=== PATIENT | female | born 1935 | race Caucasian/White ===

== ENCOUNTER 2020-08-17 15:43 | Inpatient (IN) | payer MEDICARE, BC ==
[~2020-08-17] VITALS: Ht 152.4 cm; Wt 46.3 kg
[2020-08-18] MEDS ORDERED: ACET-2154 PO (17:23)
[2020-08-18] MEDS ORDERED: ENOX40DI SQ (17:28)
[2020-08-18] MEDS ORDERED: LEVO100T PO (17:28)
[2020-08-18] MEDS ORDERED: DONE10TA11 PO (17:28)
[2020-08-18] MEDS ORDERED: MAG30ORA PO (17:28)
[2020-08-18] MEDS ORDERED: LISI2.5T2 PO (17:28)
[2020-08-18] MEDS ORDERED: MAGN400O6 PO (17:28)
[2020-08-18] MEDS ORDERED: HYDR-4384 PO (17:28)
[2020-08-18] MEDS ORDERED: MEMA10TA PO (17:29)
--- NOTE | 2020-08-18 18:09 | NUR ---
patient admitted from [facility] status post left hip hemiarthroplasty, patient is alert, awake, no sob,resp even nonlabord, skin warm and dry to touch, incision site is clean and dry, no active bleeding noted, patient is comfortable in bed, hip precautions are in place, [employer] APPRENTICE Yousuf is aware about admission and recon meds.
[2020-08-18 18:53] VITALS: BP 130/70
[2020-08-18] MEDS ORDERED: MAGNESIUM HYDROXIDE 30 ML LIQUID UDC PO PRN (20:00)
[2020-08-18] MEDS: MEMANTINE HCL 10 MG TABLET PO SCH (20:52)
[2020-08-18] MEDS: HYDROCODONE/APAP 5-325MG TABLET PO PRN (20:53)
[2020-08-18 21:00] VITALS: BP 108/50
--- NOTE | 2020-08-18 21:30 | NUR ---
Received pt resting in bed. AAO x1-2. No acute distress noted. Complain of 8/10 pain on left hip, PRN pain med and other due med given as ordered. Turned and repositioned. Both heels offloaded. Safety measures maintained. Bed alarm on. Call light and personal items within reach. Will continue to monitor.
[2020-08-19 04:00] VITALS: BP 126/70
[2020-08-19 07:06] LABS: BASOPHILS # (AUTO) 0.1 K/uL (0.0-8.0); BASOPHILS % (AUTO) 0.8 % (0.0-2.0); EOSINOPHILS # (AUTO) 0.3 K/uL (0.0-0.7); HEMATOCRIT 27.9 % (31.2-41.9); HEMOGLOBIN 9.4 g/dL (10.9-14.3); LYMPHOCYTES # (AUTO) 1.2 K/uL (20.0-40.0); MEAN CORPUSCULAR HEMOGLOBIN 30.6 uug (24.7-32.8); MEAN CORPUSCULAR HGB CONC 34 g/dL (32.3-35.6); MEAN CORPUSCULAR VOLUME 90.3 fL (75.5-95.3); MONOCYTES % (AUTO) 10.1 % (0.0-11.0); NEUTROPHILS # (AUTO) 7.4 K/uL (1.8-8.9); NEUTROPHILS % (AUTO) 74.1 % (38.5-71.5); PLATELET COUNT (AUTO) 403 K/uL (179-408); RED BLOOD CELL COUNT(AUTO) 3.09 MIL/uL (3.63-4.92)
[2020-08-19 07:30] LABS: BILIRUBIN,DIRECT 0.1 mg/dL (0.0-0.2); BILIRUBIN,TOTAL 0.5 mg/dL (0.2-1.0); CREATININE 0.6 mg/dL (0.6-1.3); PHOSPHOROUS 2.7 mg/dL (2.5-4.9); POTASSIUM 3.4 mmol/L (3.5-5.1); TOTAL PROTEIN, SERUM 5.8 g/dL (6.4-8.2)
[2020-08-19 07:41] LABS: *BILIRUBIN,URIN NEGATIVE (NEGATIVE); *CLARITY,URINE SLIGHTLY CLOUDY (CLEAR); *COLOR,URINE YELLOW (YELLOW); *KETONES,URINE NEGATIVE (NEGATIVE); *UROBILINOGEN,URINE 0.2 E.U./dl (NORMAL); LEUKOCYTE ESTERASE ,URINE NEGATIVE (NEGATIVE); NITRITE, URINE NEGATIVE (NEGATIVE); UGLUCOSE NEGATIVE (NEGATIVE)
[2020-08-19 07:47] LABS: *BLOOD, URINE TRACE (NEGATIVE)
[2020-08-19] MEDS ORDERED: LEVOTHYROXINE SODIUM 100 MCG TABLET PO SCH (09:00)
[2020-08-19] MEDS: LISINOPRIL 5 MG TABLET PO SCH (09:00)
[2020-08-19] MEDS: LEVOTHYROXINE SODIUM 100 MCG TABLET PO SCH (09:01)
[2020-08-19] MEDS: MEMANTINE HCL 10 MG TABLET PO SCH ×2 (09:01→21:24)
[2020-08-19] MEDS: DONEPEZIL 10 MG TABLET PO SCH (09:01)
[2020-08-19] MEDS: ENOXAPARIN SODIUM 40 MG/0.4 ML DISP.SYRIN SQ SCH (09:10)
[2020-08-19] MEDS ORDERED: POTASSIUM CHLORIDE 20 MEQ TAB.PRT.SR PO ONE (10:00)
[2020-08-19 12:34] LABS: BACTERIA,URINE FEW /HPF (NONE SEEN); RBC,URINE 0-3 /HPF (0-3); SQUAMOUS EPITHELIAL CELL,UR FEW /HPF (NONE SEEN); WBC,URINE NONE SEEN /HPF (0-3)
[2020-08-19] MEDS: ACETAMINOPHEN 325 MG TABLET PO PRN (17:09)
--- NOTE | 2020-08-19 17:47 | NUR ---
Pt received, assessed, no acute distress, and denies pain. Pt cooperative with routine medications and taking Tylenol PRN for headache and slight back ache. Pt compliant with therapies as offered. Pt is pleasantly confused AAOx1-2 and believes she is in her assisted living facility. Pt denies being wet at times, when in actuality she is. Pt repositioned, all comfort and safety measures implemented. Personal items and call light placed within reach. 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
[2020-08-19 20:30] VITALS: BP 111/55
[2020-08-19] MEDS: ATORVASTATIN 20 MG TABLET PO SCH (21:24)
--- NOTE | 2020-08-19 21:29 | NUR ---
medications due given . ambulated to the bathroom with assist and walker and assisted back to bed tolerated well.fixed in bed and made comfortable,with call light within reach
--- NOTE | 2020-08-20 02:45 | NUR ---
awake,bedpan senrved and voided freely,cleaned and kept dry thereafter
--- NOTE | 2020-08-20 04:02 | NUR ---
ambulated to the bathroom with assistance and walker.
[2020-08-20 04:36] VITALS: BP 125/63
[2020-08-20] MEDS: LEVOTHYROXINE SODIUM 100 MCG TABLET PO SCH (06:29)
[2020-08-20] MEDS ORDERED: LEVOTHYROXINE SODIUM 100 MCG TABLET PO SCH (07:00)
[2020-08-20 08:00] VITALS: BP 128/67
[2020-08-20] MEDS: MEMANTINE HCL 10 MG TABLET PO SCH ×2 (08:50→20:34)
[2020-08-20] MEDS: LISINOPRIL 5 MG TABLET PO SCH (08:50)
[2020-08-20] MEDS: DONEPEZIL 10 MG TABLET PO SCH (08:50)
[2020-08-20] MEDS: ENOXAPARIN SODIUM 40 MG/0.4 ML DISP.SYRIN SQ SCH (08:51)
--- NOTE | 2020-08-20 15:33 | NUR ---
INTERDISCIPLINARY TEAM CONFERENCE
[2020-08-20 16:08] VITALS: BP 114/48
--- NOTE | 2020-08-20 17:11 | NUR ---
Pt. tolerated therapy well. no c/o of pain/discomfort prior and post therapy. Pt AOX2 noted. confuse and forgetful. Incontinent to urine and bladder. Continue lovenox for DVT PPX. no signs of bleeding noted. Pt wound dressing change. will continue monitor
[2020-08-20 20:00] VITALS: BP 119/66
[2020-08-20] MEDS: ATORVASTATIN 20 MG TABLET PO SCH (20:34)
[2020-08-21 04:00] VITALS: BP 119/53
--- NOTE | 2020-08-21 04:29 | NUR ---
Awake alert and oriented x2-3 with periods of confusion @ times. VSS. Needs attended. Kept comfortable. Admitted for a left hip hemiarthroplasty. Left hip dressing clean, with andrew intact. Incontinent of bowel and bladder. Kept clean and dry. No BM noted this shift. Will monitor patient. No acute distress noted. Fall precautions maintained. Siderails up for safety.
[2020-08-21] MEDS: LEVOTHYROXINE SODIUM 100 MCG TABLET PO SCH (06:10)
--- NOTE | 2020-08-21 06:50 | NUR ---
End of shift notes: Slept well most of the shift. Denies any pain nor any discomfort. No acute distress noted. Needs attended. VSS Incontinent of urine x2 Kept clean and dry.
[2020-08-21 08:00] VITALS: BP 136/52
[2020-08-21] MEDS: DONEPEZIL 10 MG TABLET PO SCH (08:35)
[2020-08-21] MEDS: MEMANTINE HCL 10 MG TABLET PO SCH ×2 (08:35→20:59)
[2020-08-21] MEDS: LISINOPRIL 5 MG TABLET PO SCH (08:35)
[2020-08-21] MEDS: ENOXAPARIN SODIUM 40 MG/0.4 ML DISP.SYRIN SQ SCH (08:36)
--- NOTE | 2020-08-21 13:10 | NUR ---
RECEIVED PATIENT AWAKE, ALERT AND ORIENTED X 2-3. VSS. PATIENT ABLE TO TOLERATE PHYSICAL THERAPY. NO S/S OF DISTRESS OR SOB NOTED. ABLE TO AMBULATE WITH FWW MIN ASSIST. DRESSING DRY AND INTACT - NO S/S OF BLEEDING NOTED. SAFETY PRECAUTIONS IN PLACE. WILL CONTINUE TO MONITOR.
--- NOTE | 2020-08-21 15:36 | NUR ---
INDIVIDUALIZED PLAN OF CARE
[2020-08-21 16:00] VITALS: BP 106/74
[2020-08-21 19:57] VITALS: BP 123/64
[2020-08-21] MEDS: ATORVASTATIN 20 MG TABLET PO SCH (20:58)
--- NOTE | 2020-08-21 21:00 | NUR ---
Received pt resting in bed. AAO x1-2. No acute distress noted. no SOB noted. Denies any pain at this time. Dressing clean and intact, no drainage noted. All due medication administered and tolerated well. all needs attended too promptly. Assisted pt to the bathroom. Kept clean, dry, and comfortable. Turned and repositioned. Both heels offloaded. Safety measures maintained. Call light and personal items within reach. Will continue to monitor through the night.
[2020-08-22 05:18] VITALS: BP 114/50
[2020-08-22] MEDS: LEVOTHYROXINE SODIUM 100 MCG TABLET PO SCH (06:25)
[2020-08-22] MEDS: MEMANTINE HCL 10 MG TABLET PO SCH ×2 (10:15→20:24)
[2020-08-22] MEDS: DONEPEZIL 10 MG TABLET PO SCH (10:15)
[2020-08-22] MEDS: LISINOPRIL 5 MG TABLET PO SCH (10:15)
[2020-08-22] MEDS: ENOXAPARIN SODIUM 40 MG/0.4 ML DISP.SYRIN SQ SCH (10:17)
--- NOTE | 2020-08-22 11:53 | NUR ---
RECEIVED PATIENT AWAKE, ALERT AND ORIENTED X 2-3. VSS. AMBULATES WITH FWW MIN ASSIST. DRESSING DRY AND INTACT. ABLE TO TOLERATE PHYSICAL THERAPY. ALL NEEDS MET. SAFETY PRECAUTIONS IN PLACE. WILL CONTINUE TO MONITOR.
[2020-08-22 12:00] VITALS: BP 117/56
[2020-08-22 16:00] VITALS: BP 118/65
[2020-08-22 20:24] VITALS: BP 123/62
[2020-08-22] MEDS: ATORVASTATIN 20 MG TABLET PO SCH (20:24)
--- NOTE | 2020-08-22 20:40 | NUR ---
Received pt resting in bed. AAO x2-3, forgetful and needs reorientation. Pleasantly sweet, able to make needs knwon. No acute distress noted, No SOB noted. Vitals WNL. Denies any pain or discomfort. Dressing on Left hip changed, no drainage noted, no s/s of infection noted, clean and intact andrew, covered with surgical dressing. All due medication administered and tolerated well. All needs attended too promptly. Kept clean, dry, and comfortable. Both heels offloaded, SCD pumps in place. Safety measures maintained. Call light and personal items within reach. Will continue to monitor through the night.
[2020-08-23 05:37] VITALS: BP 136/65
[2020-08-23] MEDS: LEVOTHYROXINE SODIUM 100 MCG TABLET PO SCH (06:48)
--- NOTE | 2020-08-23 08:30 | NUR ---
RECEIVED PATIENT AAOX1-2, FORGETFUL BUT IS ABLE TO BE REORIENTED AND FOLLOW COMMANDS. DRESSING DRY AND INTACT, NO S/S OF BLEEDING NOTED. ABLE TO AMBULATE WITH FWW WITH MINIMAL ASSIST. CONTINENT/INCONTINENT OF B/B. NEEDS MET. SAFETY PRECAUTIONS IN PLACE. WILL CONTINUE TO MONITOR.
[2020-08-23] MEDS: ENOXAPARIN SODIUM 40 MG/0.4 ML DISP.SYRIN SQ SCH (09:00)
[2020-08-23] MEDS: LISINOPRIL 5 MG TABLET PO SCH (09:00)
--- NOTE | 2020-08-23 09:30 | NUR ---
HELD LISINOPRIL. BP 95/43. PATIENT DENIES DIZZINESS OR LIGHTHEADEDNESS. WILL CONTINUE TO MONITOR.
[2020-08-23] MEDS: DONEPEZIL 10 MG TABLET PO SCH (09:41)
[2020-08-23] MEDS: MEMANTINE HCL 10 MG TABLET PO SCH ×2 (09:41→21:45)
[2020-08-23 15:55] VITALS: BP 105/50
[2020-08-23 20:44] VITALS: BP 102/48
[2020-08-23] MEDS: SULFAMETH/TRIMETH 800/160 MG TABLET PO SCH (21:45)
[2020-08-23] MEDS: ATORVASTATIN 20 MG TABLET PO SCH (21:45)
--- NOTE | 2020-08-23 22:00 | NUR ---
Received pt resting in bed. AAO x2, very forgetful and needs reorientation. No acute distress noted, No SOB noted. Vitals WNL. Denies any pain or discomfort. Dressing on Left hip intact no s/s of infection noted. All due medication administered and tolerated well. All needs attended too promptly. Kept clean, dry, and comfortable. Both heels offloaded, SCD pumps in place. Safety measures maintained. Call light and personal items within reach. Will continue to monitor through the night.
[2020-08-24 05:39] VITALS: BP 128/68
[2020-08-24] MEDS: LEVOTHYROXINE SODIUM 100 MCG TABLET PO SCH (06:27)
[2020-08-24 08:00] VITALS: BP 97/42
[2020-08-24] MEDS: MEMANTINE HCL 10 MG TABLET PO SCH ×2 (08:53→21:28)
[2020-08-24] MEDS: SULFAMETH/TRIMETH 800/160 MG TABLET PO SCH ×2 (08:54→21:27)
[2020-08-24] MEDS: DONEPEZIL 10 MG TABLET PO SCH (08:54)
[2020-08-24] MEDS: LISINOPRIL 5 MG TABLET PO SCH (09:00)
[2020-08-24] MEDS: ENOXAPARIN SODIUM 40 MG/0.4 ML DISP.SYRIN SQ SCH (09:05)
--- NOTE | 2020-08-24 09:58 | NUR ---
Received Pt. awake in bed in stable condition. Pt. complaint of abdominal discomfort but refuse to take pain medication. Pt. BP 97/42. therapy aware. Pt. encourage increase fluid intake with good effect. will continue monitor
[2020-08-24] MEDS: ENSURE ENLIVE (VAN) 240 ML LIQUID PO SCH ×2 (11:28→17:14)
[2020-08-24] MEDS: MAG HYDROX/AL HYDROX/SIMETH 30 ML LIQUID UDC PO PRN (11:28)
[2020-08-24 16:00] VITALS: BP 111/48
--- NOTE | 2020-08-24 19:30 | NUR ---
Received pt awake and alert to self in bed. Denies nay discomfort or pain at this time. Will continue to monitor.
[2020-08-24 20:29] VITALS: BP 111/54
[2020-08-24] MEDS: ATORVASTATIN 10 MG TABLET PO SCH (21:28)
[2020-08-25] MEDS: LEVOTHYROXINE SODIUM 100 MCG TABLET PO SCH (06:01)
--- NOTE | 2020-08-25 06:22 | NUR ---
Pt slept intermittently throughout the night. No complaints of pain or respiratory distress. Took all medications without complications. Pt is somewhat confused but is able to make needs known. Was able to ambulate with assistance to bathroom. Will endorse to day shift.
[2020-08-25 07:37] VITALS: BP 130/52
[2020-08-25] MEDS: DONEPEZIL 10 MG TABLET PO SCH (08:11)
[2020-08-25] MEDS: MEMANTINE HCL 10 MG TABLET PO SCH ×2 (08:11→20:31)
[2020-08-25] MEDS: LISINOPRIL 5 MG TABLET PO SCH (08:12)
[2020-08-25] MEDS: SULFAMETH/TRIMETH 800/160 MG TABLET PO SCH ×2 (08:12→20:31)
[2020-08-25] MEDS: ENSURE ENLIVE (VAN) 240 ML LIQUID PO SCH ×2 (08:12→16:21)
[2020-08-25] MEDS: ENOXAPARIN SODIUM 40 MG/0.4 ML DISP.SYRIN SQ SCH (08:13)
[2020-08-25 15:39] VITALS: BP 108/47
--- NOTE | 2020-08-25 17:23 | NUR ---
patient is awake alert, episodes of forgetfullness, participated in PT, OT services, no distress noted, needs attended timely.
[2020-08-25] MEDS: ATORVASTATIN 10 MG TABLET PO SCH (20:31)
[2020-08-25] MEDS: HYDROCODONE/APAP 5-325MG TABLET PO PRN (20:33)
[2020-08-25 20:42] VITALS: BP 105/57
[2020-08-26 04:27] VITALS: BP 114/65
[2020-08-26] MEDS: LEVOTHYROXINE SODIUM 100 MCG TABLET PO SCH (06:35)
[2020-08-26 07:30] VITALS: BP 102/53
[2020-08-26] MEDS: LISINOPRIL 5 MG TABLET PO SCH (09:00)
[2020-08-26] MEDS: SULFAMETH/TRIMETH 800/160 MG TABLET PO SCH ×2 (09:07→21:13)
[2020-08-26] MEDS: DONEPEZIL 10 MG TABLET PO SCH (09:07)
[2020-08-26] MEDS: MEMANTINE HCL 10 MG TABLET PO SCH ×2 (09:07→21:13)
[2020-08-26] MEDS: ENOXAPARIN SODIUM 40 MG/0.4 ML DISP.SYRIN SQ SCH (09:11)
[2020-08-26] MEDS: ENSURE ENLIVE (VAN) 240 ML LIQUID PO SCH ×2 (09:13→17:45)
--- NOTE | 2020-08-26 09:16 | NUR ---
DOWN TO OT.
[2020-08-26 14:45] VITALS: BP 103/50
[2020-08-26 20:30] VITALS: BP 134/64
[2020-08-26] MEDS: ATORVASTATIN 10 MG TABLET PO SCH (21:13)
[2020-08-26] MEDS: HYDROCODONE/APAP 5-325MG TABLET PO PRN (21:14)
--- NOTE | 2020-08-27 00:20 | NUR ---
Received pt resting in bed and watching tv. AAO x1-2, with episodes of confusion. No acute distress noted. Due meds given as ordered. Safety measures maintained. Call light and personal items within reach. Will continue to monitor.
[2020-08-27 04:00] VITALS: BP 108/64
[2020-08-27] MEDS: LEVOTHYROXINE SODIUM 100 MCG TABLET PO SCH (06:24)
[2020-08-27 08:00] VITALS: BP 105/48
[2020-08-27] MEDS: DONEPEZIL 10 MG TABLET PO SCH (08:12)
[2020-08-27] MEDS: SULFAMETH/TRIMETH 800/160 MG TABLET PO SCH ×2 (08:12→20:19)
[2020-08-27] MEDS: MEMANTINE HCL 10 MG TABLET PO SCH ×2 (08:12→20:20)
[2020-08-27] MEDS: ENOXAPARIN SODIUM 40 MG/0.4 ML DISP.SYRIN SQ SCH (08:13)
[2020-08-27] MEDS: ENSURE ENLIVE (VAN) 240 ML LIQUID PO SCH ×2 (08:13→16:11)
[2020-08-27] MEDS: LISINOPRIL 5 MG TABLET PO SCH (08:13)
--- NOTE | 2020-08-27 13:58 | NUR ---
INTERDISCIPLINARY TEAM CONFERENCE
[2020-08-27 16:00] VITALS: BP 122/57
[2020-08-27 20:00] VITALS: BP 105/69
[2020-08-27] MEDS: ATORVASTATIN 10 MG TABLET PO SCH (20:19)
--- NOTE | 2020-08-27 20:50 | NUR ---
Patient received from AM nurse. VSS. Will continue to monitor and assess.
[2020-08-28 04:00] VITALS: BP 106/68
--- NOTE | 2020-08-28 04:04 | NUR ---
Patient is a pleasant 85 y/o female. No reports of pain, discomfort, or SOB throughout the night. Patient is somewhat confused but able to be conversed with and follow commands. Non-remarkable findings relative to this patient throughout the night. Will continue to monitor and assess.
[2020-08-28] MEDS: HYDROCODONE/APAP 5-325MG TABLET PO PRN (04:26)
--- NOTE | 2020-08-28 04:28 | NUR ---
Patient reported aching in left hip. Requested pain medication. Vital signs taken prior to administration--all within normal ranges. Will monitor and assess.
[2020-08-28] MEDS: LEVOTHYROXINE SODIUM 100 MCG TABLET PO SCH (06:02)
--- NOTE | 2020-08-28 07:04 | NUR ---
Patient handed off to AM nurse. VSS. Patient in stable condition. Endorsing to AM nurse.
[2020-08-28] MEDS: DONEPEZIL 10 MG TABLET PO SCH (08:04)
[2020-08-28] MEDS: SULFAMETH/TRIMETH 800/160 MG TABLET PO SCH (08:04)
[2020-08-28] MEDS: MEMANTINE HCL 10 MG TABLET PO SCH ×2 (08:04→21:10)
[2020-08-28] MEDS: ENOXAPARIN SODIUM 40 MG/0.4 ML DISP.SYRIN SQ SCH (08:05)
[2020-08-28 08:19] VITALS: BP 106/51
[2020-08-28] MEDS: ENSURE ENLIVE (VAN) 240 ML LIQUID PO SCH ×2 (09:22→16:25)
[2020-08-28] MEDS: LISINOPRIL 5 MG TABLET PO SCH (09:22)
[2020-08-28 14:59] VITALS: BP 105/53
[2020-08-28 20:00] VITALS: BP 106/49
[2020-08-28] MEDS: ATORVASTATIN 10 MG TABLET PO SCH (21:10)
[2020-08-29] VITALS: BP 105/52
[2020-08-29 04:00] VITALS: BP 115/58
[2020-08-29] MEDS: LEVOTHYROXINE SODIUM 100 MCG TABLET PO SCH (06:13)
--- NOTE | 2020-08-29 07:05 | NUR ---
patient stable throughout shift. On RA. Confused this AM when she woke up, but reoriented to place and time. Not in acute distress
[2020-08-29] MEDS: DONEPEZIL 10 MG TABLET PO SCH (07:58)
[2020-08-29] MEDS: MEMANTINE HCL 10 MG TABLET PO SCH ×2 (07:58→20:38)
[2020-08-29] MEDS: ENSURE ENLIVE (VAN) 240 ML LIQUID PO SCH ×2 (07:58→16:21)
[2020-08-29] MEDS: ENOXAPARIN SODIUM 40 MG/0.4 ML DISP.SYRIN SQ SCH (07:59)
[2020-08-29 08:00] VITALS: BP 96/47
[2020-08-29] MEDS: LISINOPRIL 5 MG TABLET PO SCH (09:00)
[2020-08-29] MEDS: PANTOPRAZOLE SODIUM 40 MG TABLET.DR PO SCH (09:15)
[2020-08-29 13:34] LABS: *BILIRUBIN,URIN NEGATIVE (NEGATIVE); *BLOOD, URINE NEGATIVE (NEGATIVE); *CLARITY,URINE CLEAR (CLEAR); *COLOR,URINE YELLOW (YELLOW); *KETONES,URINE NEGATIVE (NEGATIVE); *UROBILINOGEN,URINE 0.2 E.U./dl (NORMAL); LEUKOCYTE ESTERASE ,URINE NEGATIVE (NEGATIVE); NITRITE, URINE NEGATIVE (NEGATIVE); UGLUCOSE NEGATIVE (NEGATIVE)
[2020-08-29 16:00] VITALS: BP 107/71
--- NOTE | 2020-08-29 20:00 | NUR ---
Received pt in bed, awake. No s/s of respiratory distress. Pt is confused and didn't remember where she was but was reoriented. Denies any pain at this time. Will continue to monitor.
[2020-08-29] MEDS: ATORVASTATIN 10 MG TABLET PO SCH (20:38)
[2020-08-29 20:58] VITALS: BP 123/51
[2020-08-30 05:24] VITALS: BP 135/73
[2020-08-30] MEDS: LEVOTHYROXINE SODIUM 100 MCG TABLET PO SCH (06:25)
[2020-08-30] MEDS: PANTOPRAZOLE SODIUM 40 MG TABLET.DR PO SCH (06:25)
--- NOTE | 2020-08-30 06:42 | NUR ---
Pt slept intermittently throughout the night. Denies any pain or SOB. Pt is on RA. Pt is able to ambulate to the restroom with assistance and a walker. Safety and comfort provided. All medications tolerated well. Will endorse to day shift.
[2020-08-30 07:30] VITALS: BP 120/61
--- NOTE | 2020-08-30 07:30 | NUR ---
IN BED AWAKE ALERT AND AWARE BUT IS SOMEWHAT DISORIENTED AT THIS TIME DENIES PAIN OR DISCOMFORTS HAS ABDUCTION PILLOW INTACT ORDERED TEACHING REGARDING TOTAL HIP PRECAUTION IN PROGRESS SEEMS TO UNDERSTAND BUT CONTINUES TO REQUIRE REINFORCEMENTS CALL LIGHTS AND PERSONAL BELONGINGS ARE WITHIN EASY REACH MADE COMFORTABLE WILL CONTINUE TO OBSERVE.
[2020-08-30] MEDS: MEMANTINE HCL 10 MG TABLET PO SCH ×2 (08:25→20:48)
[2020-08-30] MEDS: DONEPEZIL 10 MG TABLET PO SCH (08:25)
[2020-08-30] MEDS: LISINOPRIL 5 MG TABLET PO SCH (08:26)
[2020-08-30] MEDS: ENOXAPARIN SODIUM 40 MG/0.4 ML DISP.SYRIN SQ SCH (08:33)
[2020-08-30] MEDS: ENSURE ENLIVE (VAN) 240 ML LIQUID PO SCH ×2 (08:35→17:16)
[2020-08-30] MEDS: ACETAMINOPHEN 325 MG TABLET PO PRN (11:11)
--- NOTE | 2020-08-30 11:11 | NUR ---
PATIENT IS SEATED UP ON THE CHAIR IN HER ROOM S/P PHYSICAL THERAPY STATED FEELS SOME MILD DISCOMFORTS MEDICATED WITH TYLENOL READJUSTED ON THE CHAIR MADE COMFORTABLE CALL LIGHTS WITHIN EASY REACH WILL CONTINUE TO OBSERVE.
[2020-08-30 16:00] VITALS: BP 102/49
--- NOTE | 2020-08-30 17:33 | NUR ---
APPETITE IS POOR ENCOURAGED TO EAT ENCOURAGED TO DRINK HER ENSURE ORDERED AND STATED WILL DRINK IT WILL CONTINUE TO OBSERVE.SEEN BY DR KNOX WITH NO NEW ORDERS AT THIS TIME.
--- NOTE | 2020-08-30 19:30 | NUR ---
Pt received in bed, asleep. Pt is on RA. Does not appear to be in any acute distress at this time. Will continue to monitor.
[2020-08-30 20:37] VITALS: BP 87/40
[2020-08-30] MEDS: ATORVASTATIN 10 MG TABLET PO SCH (20:48)
[2020-08-31 04:06] VITALS: BP 100/43
--- NOTE | 2020-08-31 06:20 | NUR ---
Received report from Carrol TAY @ 0130. Pt sleeping, no acute distress noted. Morning medication administered. Safety and comfort provided. Safety measure maintained, bed alarm on. Will endorse to day shift.
[2020-08-31] MEDS: PANTOPRAZOLE SODIUM 40 MG TABLET.DR PO SCH (06:25)
[2020-08-31] MEDS: LEVOTHYROXINE SODIUM 100 MCG TABLET PO SCH (06:25)
--- NOTE | 2020-08-31 07:30 | NUR ---
RECEIVED PATIENT IN BED AWAKE ALERT AND VERBALLY RESPONDS WITH DISORIENTATION AT THIS TIME PATIENT INSTRUCTED TO USE THE CALL LIGHT FOR ASSIST AND TO NOT GET OUT OF BED BY SELF AND SHE EXPRESSED UNDERSTANDING ABD PILLOW IS INTACT PERSONAL BELONGINGS ARE WITHIN EASY REACH MADE COMFORTABLE WILL CONTINUE TO OBSERVE AND PROVIDE COMFORT.
[2020-08-31 07:45] VITALS: BP 108/52
[2020-08-31] MEDS: DONEPEZIL 10 MG TABLET PO SCH (08:13)
[2020-08-31] MEDS: MEMANTINE HCL 10 MG TABLET PO SCH ×2 (08:13→20:47)
[2020-08-31] MEDS: LISINOPRIL 5 MG TABLET PO SCH (08:15)
--- NOTE | 2020-08-31 08:16 | NUR ---
PRINIVIL 2.5 MG HELD THIS AM HER BLOOD PRESSURE HAS BEEN TRENDING DOWN LOW 87/40 LAST NIGHT AND 108/52 RIGHT NOW WILL NOTIFY MD TO CLARIFY PARAMETERS PATIENT IS ASYMPTOMATIC THROUGH OUT.WILL CONTINUE TO OBSERVE.
[2020-08-31] MEDS: ENOXAPARIN SODIUM 40 MG/0.4 ML DISP.SYRIN SQ SCH (08:27)
[2020-08-31] MEDS: ACETAMINOPHEN 325 MG TABLET PO PRN (08:48)
[2020-08-31] MEDS: ENSURE ENLIVE (VAN) 240 ML LIQUID PO SCH ×2 (08:49→16:24)
--- NOTE | 2020-08-31 10:00 | NUR ---
PATIENT WAS MEDICATED TODAY FOR C/O ABDOMINAL PAIN SHE HAD A BOWEL MOVEMENT TODAY AND 2 BMS YESTERDAY HER BLOOD PRESSURE HAS BEEN ALL OVER THE PLACE BETWEEN BEING LOW AND NORMAL BUT NOT SUSTAINED SHE IS ASSYMPTOMATIC DR FELIZ NOTIFIED WITH NO NEW ORDERS AT THIS TIME WILL CONTINUE TO OBSERVE.
[2020-08-31 14:55] VITALS: BP 116/54
--- NOTE | 2020-08-31 16:25 | NUR ---
PATIENT IS ON THE PHONE TALKING WHEN I ENTERED THE ROOM TO CHECK HER NOTED THAT HER CONVERSATION WAS ODD ASKED HER WHO WAS ON THE PHONE AND SHE STATED THAT SHE WS LOOKING FOR SOMEONE TO TAKE HER UPSTAIRS WANTED TO KNOW HOW LONG SHE WILL BE HERE VERY CONFUSED AND DISORIENTED ONE ON ONE REALITY ORIENTATION IS IN PROGRESS TO REDUCE CONFUSSION PATIENT REASSURED THAT THIS IS HER ROOM FOR THE TIME BEING WHILE SHE IS RECEIVING THERAPY REASSURED HER SHE IS OKAY AND SAFE HERE PATIENT VERY POLITELY AND PLEASANTLY SAID THANK YOU THAT IS WHAT I WANTED TO KNOW TO THIS WRITTER. HER CALL LIGHTS AND PERSONAL BELONGINGS ARE WITHIN EASY REACH WILL CONTINUE TO OBSERVE.
--- NOTE | 2020-08-31 18:30 | NUR ---
MORE ALERT BUT STILL HAS DISORIENTATION ABLE TO MAKE SIMPLE NEEDS MADE ABDUCTION PILLOW REMAINS IN PLACE AND PATIENT IS BEING OBSERVED AND EDUCATED ON TOTAL HIP PROTOCOL AND PRECAUTION EXPRESSED UNDERSTANDING BUT REINFORCEMENTS REQUIRED.WILL CONTINUE TO OBSERVE.
[2020-08-31 20:38] VITALS: BP 93/54
[2020-08-31] MEDS: ATORVASTATIN 10 MG TABLET PO SCH (20:47)
--- NOTE | 2020-09-01 00:08 | NUR ---
Resting in bed upon initial rounds. AAOx1-2 Forgetful at times. Confusion comes and goes. VSS. Needs attended. Left hip dressing clean dry and intact. No complaints presented during shift.Will monitor patient. Attended to needs. Abduction pillow in placed. Fall precautions maintained. Siderails up for safety.
[2020-09-01] MEDS: PANTOPRAZOLE SODIUM 40 MG TABLET.DR PO SCH (06:21)
[2020-09-01] MEDS: LEVOTHYROXINE SODIUM 100 MCG TABLET PO SCH (06:21)
--- NOTE | 2020-09-01 06:47 | NUR ---
End of shift notes: Slept well most of the shift. Needs attended. All due meds given as scheduled. Tolertaed well. No ill effects noted. VSS. Left hip incision intact with andrew in placed, covered with dressing. Will monitor patient. e
[2020-09-01 07:04] LABS: BILIRUBIN,TOTAL 0.4 mg/dL (0.2-1.0); CREATININE 0.8 mg/dL (0.6-1.3); PHOSPHOROUS 3.2 mg/dL (2.5-4.9); POTASSIUM 4.7 mmol/L (3.5-5.1); TOTAL PROTEIN, SERUM 6.7 g/dL (6.4-8.2)
[2020-09-01 07:19] LABS: BASOPHILS % (AUTO) 0.4 % (0.0-2.0); EOSINOPHILS # (AUTO) 0.5 K/uL (0.0-0.7); EOSINOPHILS % (AUTO) 7.3 % (0.0-7.0); HEMATOCRIT 30.6 % (31.2-41.9); HEMOGLOBIN 10.2 g/dL (10.9-14.3); LYMPHOCYTES # (AUTO) 1.5 K/uL (20.0-40.0); LYMPHOCYTES % (AUTO) 22.5 % (20.5-51.5); MEAN CORPUSCULAR HEMOGLOBIN 30.7 uug (24.7-32.8); MEAN CORPUSCULAR HGB CONC 33 g/dL (32.3-35.6); MEAN CORPUSCULAR VOLUME 92.1 fL (75.5-95.3); MONOCYTES # (AUTO) 0.6 K/uL (2.0-10.0); MONOCYTES % (AUTO) 10.1 % (0.0-11.0); NEUTROPHILS # (AUTO) 3.9 K/uL (1.8-8.9); NEUTROPHILS % (AUTO) 59.7 % (38.5-71.5); PLATELET COUNT (AUTO) 431 K/uL (179-408); RED BLOOD CELL COUNT(AUTO) 3.32 MIL/uL (3.63-4.92); WHITE BLOOD COUNT (AUTO) 6.4 K/uL (3.8-11.8)
[2020-09-01 08:00] VITALS: BP 101/51
[2020-09-01] MEDS: MEMANTINE HCL 10 MG TABLET PO SCH ×2 (08:19→21:20)
[2020-09-01] MEDS: DONEPEZIL 10 MG TABLET PO SCH (08:19)
[2020-09-01] MEDS: ENSURE ENLIVE (VAN) 240 ML LIQUID PO SCH ×2 (08:20→17:56)
[2020-09-01] MEDS: ENOXAPARIN SODIUM 40 MG/0.4 ML DISP.SYRIN SQ SCH (08:25)
[2020-09-01] MEDS: LISINOPRIL 5 MG TABLET PO SCH (08:54)
--- NOTE | 2020-09-01 09:39 | NUR ---
Pt received this morning, assessed, no acute distress, no SOB, denies pain. Pt compliant with routine medication. BP 101/76, medicine held. Left hip dressing dry and intact. Pt AAOx2 with episodes of pleasant confusion, able to make needs known. Call light within reach. Plan for today discussed. All comfort and safety measures implemented. Will continue to monitor.
[2020-09-01 15:58] VITALS: BP 111/50
[2020-09-01] MEDS: ACETAMINOPHEN 325 MG TABLET PO PRN (17:49)
[2020-09-01] MEDS: MAG HYDROX/AL HYDROX/SIMETH 30 ML LIQUID UDC PO PRN (17:55)
--- NOTE | 2020-09-01 19:40 | NUR ---
Awake, in bed, watching TV at this time. Very alert and pleasant mood. No complaint presented at thsi time. Safety measures and fall prevention maintained. Continue care as planned.
[2020-09-01 20:00] VITALS: BP 107/60
[2020-09-01] MEDS: ATORVASTATIN 10 MG TABLET PO SCH (21:20)
[2020-09-02 04:00] VITALS: BP 100/52
[2020-09-02] MEDS: PANTOPRAZOLE SODIUM 40 MG TABLET.DR PO SCH (06:12)
[2020-09-02] MEDS: LEVOTHYROXINE SODIUM 100 MCG TABLET PO SCH (06:12)
[2020-09-02] MEDS: DONEPEZIL 10 MG TABLET PO SCH (07:58)
[2020-09-02] MEDS: MEMANTINE HCL 10 MG TABLET PO SCH (07:58)
[2020-09-02 08:00] VITALS: BP 112/61
[2020-09-02] MEDS: ENOXAPARIN SODIUM 40 MG/0.4 ML DISP.SYRIN SQ SCH (08:00)
[2020-09-02] MEDS: ENSURE ENLIVE (VAN) 240 ML LIQUID PO SCH (08:00)
[2020-09-02 08:23] VITALS: BP 112/61
[2020-09-02] MEDS: LISINOPRIL 5 MG TABLET PO SCH (08:23)
--- NOTE | 2020-09-02 14:57 | NUR ---
DC ORDERS RECEIVED NOTED AND CARRIED OUT,DC INSTRUCTION AND EDUCATION GIVEN TO THE PT DAUGHTER .PT LEFT THE HOSPITAL VIA PRIVATE IN STABLE CONDITION
== END 2020-09-02 15:07 | disposition home health service (06) | DRG 559 ==
PROVIDERS: ADMIT Nurse Practitioner Acute Care; ATTEND Physical Medicine & Rehabilitation Pain Medicine
DX: S72.012D Unspecified intracapsular fracture of left femur, subsequent encounter for closed fracture with routine healing (principal); E43 Unspecified severe protein-calorie malnutrition; N17.0 Acute kidney failure with tubular necrosis; D68.59 Other primary thrombophilia; E87.1 Hypo-osmolality and hyponatremia; W01.0XXD Fall on same level from slipping, tripping and stumbling without subsequent striking against object, subsequent encounter; E78.5 Hyperlipidemia, unspecified; I10 Essential (primary) hypertension; F03.90 Unspecified dementia, unspecified severity, without behavioral disturbance, psychotic disturbance, mood disturbance, and anxiety; E03.9 Hypothyroidism, unspecified; D64.9 Anemia, unspecified; E87.6 Hypokalemia; I70.0 Atherosclerosis of aorta; M11.262 Other chondrocalcinosis, left knee; M16.12 Unilateral primary osteoarthritis, left hip
CPT/HCPCS: 36415; 73502; 74018; 83735; 84100; 85025; 87077; 87086; A4663; J1650